=== PATIENT | male | born 1950 | race Caucasian/White ===

== ENCOUNTER → 2017-10-18 | Outpatient (CLI) | payer OTHER ==
[~2017-10-18] MED LIST: CHONDROITIN SU250 MG PO; ELIQUIS5 MG PO; GLUCOSAMINE HC500 MG PO; METFORMIN HCL500 MG PO; MOBIC15 MG PO; PRILOSEC 20 MG20 MG PO; UROXATRAL PO; VICTOZA0.6 MG/0.1 SUBQ; ZOCOR20 MG PO
--- NOTE | ~2017-10-18 | EKG ---
[address] [place] [address] ELECTROCARDIOGRAM REPORT Name: PATRICIA GALINDO [id number] Admission: 10/18/17 Attend Phys: Physician not on staff Discharge: Date of : 46 Report #: [id number] THIS REPORT FOR: //name// [facility] Test Date: 2017-10-18 Test Time: 15:03:56 Pat Name: PATRICIA GALINDO Department: Room: Gender: Senior Resident Care Director: Mingo JAMIL : 1950 Requested By: Physician staff Order Number: [id number] MD: Rogelio Bernal Measurements Intervals [place] Rate: 72 P: [place]: QRS: -22 QRSD: 80 T: 43 QT: 365 QTc: 400 Interpretive Statements Atrial fibrillation Left ventricular hypertrophy Poor R wave progression Compared to ECG 10/20/2007 12:06:42 Atrial fibrillation is now present poor R wave progression is noted Electronically Signed On 10-18-2017 16:32:00 CDT by Rogelio Bernal [email or web address] <ELECTRONICALLY SIGNED> By: Rogelio Bernal MD, [facility] 10/18/17 1632 1503 1503 Rogelio Bernal MD, [facility] /EPI
== END ==
LOC: CV 14:44
DX: Z01.818 Encounter for other preprocedural examination (principal); I48.91 Unspecified atrial fibrillation

== ENCOUNTER 2017-12-13 12:28 | Inpatient (IN) | payer OTHER ==
--- NOTE | ~2017-12-13 | D ---
[facility] [place] [address] DISCHARGE SUMMARY Name: PATRICIA GALINDO Room #: 206-P [facility] IN M.R.#: [id number] Admission: 12/13/17 Attend Phys: Leonides Chakraborty Discharge: 12/14/17 Date of : 46 Report #: [id number] THIS REPORT FOR: //name// CC: Leonides Mcguire DATE OF SERVICE: 12/14/2017 ADMITTING DIAGNOSIS: Paroxysmal symptomatic atrial fibrillation. DISCHARGE DIAGNOSES: 1. Paroxysmal symptomatic atrial fibrillation. 2. Hypertension. DISCHARGE MEDICATIONS: 1. Home meds. 2. Amiodarone 400 mg p.o. b.i.d. x 1 week, then q.a.m. x 1 week, then 200 mg daily. FOLLOWUP: With Dr. Chakraborty in 4 weeks. BRIEF CLINICAL HISTORY: See history and physical in the chart. HOSPITAL COURSE: The patient was admitted to the hospital, initiated on IV amiodarone protocol. This failed to convert overnight and he subsequently was brought to the cardiac catheterization, prep and hold, where he was sedated and monitored for an elective electrical cardioversion. This was successful converting to sinus mechanism. Post-procedure, was allowed to recover, ambulate and discharge to home in a stable and improved condition to follow up with previously stated discharge instructions and medications. <ELECTRONICALLY SIGNED> By: Leonides Chakraborty MD 12/14/17 2052 1529 2042 Leonides Chakraborty MD /tasneem
--- NOTE | ~2017-12-13 | EKG ---
[address] [address] ELECTROCARDIOGRAM REPORT Name: PATRICIA GALINDO Room #: 206-P ADM IN M.R.#: [id number] Admission: 12/13/17 Attend Phys: Leonides Chakraborty Discharge: Date of : 46 Report #: [id number] THIS REPORT FOR: //name// [facility] Test Date: 2017-12-14 Test Time: 17:02:10 Pat Name: PATRICIA GALINDO Department: Room: 206 P Gender: M Transplant Case Manager: Mingo JAMIL : 1950 Requested By: Leonides Chakraborty Order Number: [id number] MD: Best Modi Measurements Intervals [place] Rate: 55 P: 35 [place]: 226 QRS: -18 QRSD: 77 T: 30 QT: 421 QTc: 403 Interpretive Statements Sinus rhythm Prolonged [place] interval Probable left atrial enlargement Left ventricular hypertrophy Probable anterior infarct, old Electronically Signed On 12-14-2017 17:07:03 CDT by Best Modi [email or web address] <ELECTRONICALLY SIGNED> By: Best Modi MD 12/14/171706 01 01 Best Modi MD /JAMEE
--- NOTE | ~2017-12-13 | CATHLAB ---
[facility] [address] [place] [address] INVASIVE PROCEDURE REPORT Name: PATRICIA GALINDO Room #: 206-P [facility] IN [facility]#: [id number] Admission: 12/13/17 Attend Phys: Leonides Pruett Discharge: 12/14/17 Date of : 46 Date of Service: 12/14/17 1527 Report #: [id number] THIS REPORT FOR: //name// CC: Leonides Mcguire DATE OF SERVICE: 12/14/2017 INDICATIONS: This is a 67-year-old male patient with symptomatic paroxysmal atrial fibrillation, presents for electrical cardioversion after 4 weeks of anticoagulation. PROCEDURES: 1. Electrical cardioversion. 2. Supervision of conscious sedation. SANDBLAST OPERATOR: Leonides Chakraborty MD. BRIEF DESCRIPTION OF PROCEDURE: After informed consent was obtained, the patient was sedated with 4 mg of Versed and 25 of Demerol. Underwent a synchronized 200 joule biphasic shock in AP paddles, which converted him to sinus rhythm. Post-procedure, the patient was given Romazicon 0.4 and monitored throughout the entire procedure with oximetric and electrocardiographic monitoring. The patient tolerated the procedure well. There were no complications. <ELECTRONICALLY SIGNED> By: Leonides Chakraborty MD 12/15/17 1332 1527 0317 Leonides Chakraborty MD /nt
--- NOTE | ~2017-12-13 | EKG ---
[address] [address] ELECTROCARDIOGRAM REPORT Name: PATRICIA GALINDO Room #: 206-P ADM IN M.R.#: [id number] Admission: 12/13/17 Attend Phys: Leonides Chakraborty Discharge: Date of : 46 Report #: [id number] THIS REPORT FOR: //name// [facility] Test Date: 2017-12-14 Test Time: 06:33:19 Pat Name: PATRICIA GALINDO Department: Room: 206 P Gender: M Diesel Dinkey Engineer: PARTH : 1950 Requested By: Kandace Goins Order Number: [id number] MD: Rogelio Bernal Measurements Intervals [place] Rate: 56 P: [place]: QRS: -18 QRSD: 89 T: 34 QT: 439 QTc: 424 Interpretive Statements Atrial fibrillation Cannot rule out inferior infarct, age indeterminate Compared to ECG 10/18/2017 15:03:56 No significant change was found Electronically Signed On 12-14-2017 8:02:09 CDT by Rogelio Bernal [email or web address] <ELECTRONICALLY SIGNED> By: Rogelio Bernal MD, [facility] 12/14/17 0802 2 Rogelio Bernal MD, [facility] /EPI
[2017-12-13 12:55] VITALS: BP 143/85
[2017-12-13 13:46] LABS: HEMATOCRIT 42.7 % (42.0-52.0); HEMOGLOBIN 14.6 gm/dL (14.0-18.0); MCH 30.3 pg (26.0-34.0); MCHC 34.2 g/dL (28.0-37.0); MCV 88.6 fL (80.0-100.0); RBC 4.82 mil/uL (4.50-6.00); RDW 13.6 % (10.5-14.5); WBC 5.8 thou/uL (4.0-11.0)
[2017-12-13 13:58] LABS: ALBUMIN 4.1 g/dL (3.4-5.0); CALCIUM 9.2 mg/dL (8.5-10.1); CREATININE 0.9 mg/dL (0.7-1.3); POTASSIUM 4.2 mmol/L (3.5-5.1); TOTAL BILIRUBIN 0.4 mg/dL (<0.1-1.0); TOTAL PROTEIN 7.4 g/dL (6.4-8.2)
[2017-12-13 15:41] VITALS: BP 120/90
[2017-12-13 19:47] VITALS: BP 150/98
[2017-12-13] MEDS ORDERED: VICTOZA0.6 MG/0.1 SUBQ (22:21)
[2017-12-13] MEDS ORDERED: METFORMIN HCL500 MG PO (22:23)
[2017-12-13] MEDS ORDERED: ZOCOR20 MG PO (22:24)
[2017-12-13] MEDS ORDERED: MOBIC15 MG PO (22:24)
[2017-12-13] MEDS ORDERED: UROXATRAL PO (22:25)
[2017-12-13] MEDS ORDERED: PRILOSEC 20 MG20 MG PO (22:26)
[2017-12-13] MEDS ORDERED: GLUCOSAMINE HC500 MG PO (22:27)
[2017-12-13] MEDS ORDERED: CHONDROITIN SU250 MG PO (22:28)
[2017-12-13 23:49] VITALS: BP 151/87
[2017-12-14 04:40] VITALS: BP 141/90
[2017-12-14 07:44] VITALS: BP 140/99
[2017-12-14 11:41] VITALS: BP 146/74
[2017-12-14 16:45] VITALS: BP 136/94
[2017-12-14] MEDS ORDERED: ELIQUIS5 MG PO (17:20)
[2017-12-14 17:28] VITALS: BP 136/94
== END 2017-12-14 17:47 | disposition home or self-care (01) | DRG 310 ==
LOC: 2N 12:28
PROVIDERS: Nurse Practitioner Adult Health
PROC: 5A2204Z Restoration of Cardiac Rhythm, Single (ICD-10-PCS; principal; 2017-12-14)
DX: I48.0 Paroxysmal atrial fibrillation (principal); I10 Essential (primary) hypertension; Z79.899 Other long term (current) drug therapy
CPT/HCPCS: 10797

== ENCOUNTER → 2021-04-02 | Outpatient (CLI) | payer OTHER ==
[2021-04-02 15:14] LABS: CREATININE 1.2 mg/dL (0.7-1.3)
[2021-04-03 04:07] LABS: GLYCOHEMOGLOBIN (HGB A1C) 6.7 % (4.8-5.6)
== END ==
LOC: CAT 14:28
PROVIDERS: ATTEND Family Medicine
DX: R29.898 Other symptoms and signs involving the musculoskeletal system (principal)